=== PATIENT | male | born 1995 | race Caucasian/White ===

== ENCOUNTER 2016-09-28 15:08 | Emergency (ER) | payer SELFPAY ==
[2016-09-28 15:27] VITALS: BP 117/67
== END 2016-09-28 20:47 | disposition left against medical advice (07) ==
LOC: ED 15:08
DX: Z53.21 Procedure and treatment not carried out due to patient leaving prior to being seen by health care provider (principal)

== ENCOUNTER 2017-03-12 09:18 | Emergency (ER) | payer SELFPAY ==
--- NOTE | 2017-03-12 10:07 | Emergency Department Report ---
Chief Complaint: Shoulder Injury Stated Complaint: RIGHT ARM INJURY Time Seen by Provider: 03/12/17 09:45 - HPI History of Present Illness: Patient here complaining of right shoulder pain and she was playing basketball yesterday. He said another player stepped into his right shoulder. He states that he is unable to move his right shoulder due to pain. Patient heart rate is at 40 and he said he has a history of slow heart rate. He denies any chest pain or shortness of breath. He said his pain is 10 out of 10. Denies any nausea or vomiting. - ROS Review of Systems: All systems are negative unless stated in HPI above. - Exam Vital Signs: Vital Signs 03/12/17 09:36 Temperature 97.9 F Pulse Rate 40 L Respiratory 16 Rate Blood Pressure 115/45 O2 Sat by Pulse 99 Oximetry Physical Exam: Gen.: This is a 21-year-old male that appears to be in pain and he looks very pale. CV: She is bradycardic at 40. Extremity: Right shoulder tender to palpate with limited range of motion. Pulses are 2+ ulnar and radial bilaterally. No neurovascular compromise. No shoulder joint deformity or appearance of dislocation. MSE screening note: Focused history and physical exam performed. Due to findings the following was ordered: ED Disposition for MSE Condition: Stable Referrals: PRIMARY CARE, [Primary Care Provider] - 3-5 Days
--- NOTE | 2017-03-12 10:31 | XRay Report ---
RIGHT SHOULDER, 3 VIEWS: HISTORY: right shoulder pain. The humeral head is slightly low riding with respect to the glenoid of the scapula. This could represent poor positioning of the patient or a right shoulder joint effusion. There is no evidence for fracture, dislocation, ligamentous injury or bone lesion. The soft tissues are within normal limits. IMPRESSION: Possible right shoulder joint effusion. No acute bony injury detected.
[2017-03-12 10:52] LABS: Basophils % (Auto) 0.3 % (0.0-1.8); Eosinophils % (Auto) 1.8 % (0.0-4.3); Hematocrit 43.2 % (35.5-45.6); Hemoglobin 14.4 gm/dl (11.8-15.2); Mean Corpuscular HGB Conc 33 % (32-34); Mean Corpuscular Hemoglobin 30 pg (28-32); Mean Corpuscular Volume 88 fl (84-94); Platelet Count 141 K/mm3 (140-440); Red Blood Count 4.88 M/mm3 (3.65-5.03); Red Cell Distribution Width 14.7 % (13.2-15.2); White Blood Count 8.5 K/mm3 (4.5-11.0)
[2017-03-12 11:06] LABS: INR 0.95 (0.87-1.13)
[2017-03-12 11:07] LABS: Alanine Aminotransferase 16 units/L (7-56); Albumin 4.3 g/dL (3.9-5); Albumin/Globulin Ratio 1.6 %; Alkaline Phosphatase 62 units/L (35-129); Anion Gap 14 mmol/L; BUN/Creatinine Ratio 15; Blood Urea Nitrogen 15 mg/dL (9-20); Calcium 8.8 mg/dL (8.4-10.2); Carbon Dioxide 31 mmol/L (22-30); Chloride 103.5 mmol/L (98-107); Glucose 97 mg/dL (75-100); Partial Thromboplastin Time 30.9 Sec. (24.2-36.6); Potassium 3.9 mmol/L (3.6-5.0); Sodium 145 mmol/L (137-145)
[2017-03-12] MEDS ORDERED: TYLENOL PO ONE (11:39)
[2017-03-12] MEDS ORDERED: MOTRIN PO ONE (11:39)
--- NOTE | 2017-03-12 11:44 | Emergency Department Report ---
ED General Adult HPI - General Chief complaint: Shoulder Injury Stated complaint: RIGHT ARM INJURY Time Seen by Provider: 03/12/17 09:45 Source: patient Mode of arrival: Ambulatory Limitations: No Limitations - History of Present Illness Initial comments: This is a 21-year-old male, previously unknown to this provider, right-hand dominant, presents to the ER with right proximal shoulder pain after a collision /accident while playing basketball yesterday. No other injuries. The pain is dull and achy. It does not radiate anywhere. It increases with palpation and range of motion. It decreases with rest -: Sudden Location: right, upper extremity Radiation: non-radiation Quality: aching Consistency: intermittent Improves with: rest Worsens with: movement Associated Symptoms: denies other symptoms - Related Data Previous Rx's Medication Instructions Recorded Last Taken Type HYDROcodone/APAP 10-325 [[place] 1 each PO Q6HR PRN #20 tablet 02/28/14 Unknown Rx 10/325] Acetaminophen [Tylenol Arthritis] 650 mg PO Q6HR PRN #30 tablet.er 03/12/17 Unknown Rx Ibuprofen [Motrin] 600 mg PO Q8H PRN #30 tablet 03/12/17 Unknown Rx Allergies Allergy/AdvReac Type Severity Reaction Status Date / Time No Known Allergies Allergy Unverified 02/28/14 13:43 ED Review of Systems ROS: Stated complaint: RIGHT ARM INJURY Other details as noted in HPI Constitutional: denies: fever Respiratory: denies: cough Cardiovascular: denies: chest pain Gastrointestinal: denies: abdominal pain Musculoskeletal: arthralgia, myalgia Neurological: denies: weakness, paresthesias, vertigo ED Past Medical Hx - Past Medical History Previous Medical History?: No - Surgical History Past Surgical History?: No - Social History Smoking Status: Former Smoker Substance Use Type: Alcohol - Medications Home Medications: Home Medications Medication Instructions Recorded Confirmed Last Taken Type HYDROcodone/APAP 10-325 [[place] 1 each PO Q6HR PRN #20 tablet 02/28/14 Unknown Rx 10/325] Acetaminophen [Tylenol Arthritis] 650 mg PO Q6HR PRN #30 tablet.er 03/12/17 Unknown Rx Ibuprofen [Motrin] 600 mg PO Q8H PRN #30 tablet 03/12/17 Unknown Rx ED Physical Exam - General Limitations: No Limitations, Physical Limitation General appearance: alert, in no apparent distress - Head Head exam: Present: atraumatic, normocephalic - Eye Eye exam: Present: normal appearance, EOMI - ENT ENT exam: Present: normal exam, normal orophraynx, mucous membranes moist, normal external ear exam - Neck Neck exam: Present: normal inspection, full ROM. Absent: tenderness, meningismus - Respiratory Respiratory exam: Present: normal lung sounds bilaterally. Absent: respiratory distress, chest wall tenderness - Cardiovascular Cardiovascular Exam: Present: normal rhythm, bradycardia, normal heart sounds. Absent: systolic murmur, diastolic murmur, rubs, gallop - GI/Abdominal GI/Abdominal exam: Present: soft, normal bowel sounds. Absent: distended, tenderness, guarding, rebound, rigid, pulsatile mass - Rectal Rectal exam: Present: deferred - Extremities Exam Extremities exam: Present: normal inspection, tenderness (right shoulder has mild diffuse tenderness. Patient can actively abduction through 90. He is able to externally and internally rotate the right shoulder, full range of motion in the right wrist, right elbow. Patient is able to fully internally rotate the shoulder, and touch the bottom of his back with the dorsal aspect of his right hand, and he is able to externally rotate the shoulder, and touch the back of his neck with his right palm. There is no redness, pus or streaking, the compartments are soft.), normal capillary refill, other (sensation intact to the bilateral median, radial, ulnar distribution. Patient endorses sensation to light touch in the bilateral deltoid distribution, but indicates that the right deltoid "feels numb."). Absent: pedal edema, joint swelling, calf tenderness - Back Exam Back exam: Present: normal inspection, full ROM. Absent: tenderness, CVA tenderness (R), paraspinal tenderness, vertebral tenderness - Neurological Exam Neurological exam: Present: alert, oriented X3, normal gait, other (Extraocular movements intact. Tongue midline. No facial droop. Facial sensation intact to light touch in the V1, V2, V3 distribution bilaterally. 5 and 5 strength in 4 extremities.. Sensation is intact to light touch in 4 extremities.) - Psychiatric Psychiatric exam: Present: normal affect, normal mood - Skin Skin exam: Present: warm, dry, intact, normal color. Absent: rash ED Course Vital Signs 03/12/17 03/12/17 09:36 11:45 Temperature 97.9 F 98.1 F Pulse Rate 40 L 47 L Respiratory 16 16 Rate Blood Pressure 115/45 Blood Pressure 116/78 [Left] O2 Sat by Pulse 99 100 Oximetry ED Medical Decision Making - Lab Data Result diagrams: 03/12/17 10:29 03/12/17 10:29 Vital Signs 03/12/17 09:36 Temperature 97.9 F Pulse Rate 40 L Respiratory 16 Rate Blood Pressure 115/45 O2 Sat by Pulse 99 Oximetry Lab Results 03/12/17 03/12/17 03/12/17 Range/Units 10:21 10:29 10:29 WBC 8.5 (4.5-11.0) K/mm3 RBC 4.88 (3.65-5.03) M/mm3 Hgb 14.4 (11.8-15.2) gm/dl Hct 43.2 (35.5-45.6) % MCV 88 (84-94) fl MCH 30 (28-32) pg MCHC 33 (32-34) % RDW 14.7 (13.2-15.2) % Plt Count 141 (140-440) K/mm3 Lymph % (Auto) 22.7 (13.4-35.0) % Sierra % (Auto) 9.2 H (0.0-7.3) % Eos % (Auto) 1.8 (0.0-4.3) % Baso % (Auto) 0.3 (0.0-1.8) % Lymph # 1.9 (1.2-5.4) K/mm3 Sierra # 0.8 (0.0-0.8) K/mm3 Eos # 0.2 (0.0-0.4) K/mm3 Baso # 0.0 (0.0-0.1) K/mm3 Seg Neutrophils % 66.0 (40.0-70.0) % Seg Neutrophils # 5.6 (1.8-7.7) K/mm3 PT 13.2 (12.2-14.9) Sec. INR 0.95 (0.87-1.13) APTT 30.9 (24.2-36.6) Sec. Sodium (137-145) mmol/L Potassium (3.6-5.0) mmol/L Chloride (98-107) mmol/L Carbon Dioxide (22-30) mmol/L Anion Gap mmol/L BUN (9-20) mg/dL Creatinine (0.8-1.5) mg/dL Estimated GFR ml/min BUN/Creatinine Ratio % Glucose (75-100) mg/dL POC Glucose 95 (70-105) Calcium (8.4-10.2) mg/dL Total Bilirubin (0.1-1.2) mg/dL AST (5-40) units/L ALT (7-56) units/L Alkaline Phosphatase (35-129) units/L Total Protein (6.3-8.2) g/dL Albumin (3.9-5) g/dL Albumin/Globulin Ratio % Blood Type Antibody Screen 03/12/17 03/12/17 Range/Units 10:29 10:29 WBC (4.5-11.0) K/mm3 RBC (3.65-5.03) M/mm3 Hgb (11.8-15.2) gm/dl Hct (35.5-45.6) % MCV (84-94) fl MCH (28-32) pg MCHC (32-34) % RDW (13.2-15.2) % Plt Count (140-440) K/mm3 Lymph % (Auto) (13.4-35.0) % Sierra % (Auto) (0.0-7.3) % Eos % (Auto) (0.0-4.3) % Baso % (Auto) (0.0-1.8) % Lymph # (1.2-5.4) K/mm3 Sierra # (0.0-0.8) K/mm3 Eos # (0.0-0.4) K/mm3 Baso # (0.0-0.1) K/mm3 Seg Neutrophils % (40.0-70.0) % Seg Neutrophils # (1.8-7.7) K/mm3 PT (12.2-14.9) Sec. INR (0.87-1.13) APTT (24.2-36.6) Sec. Sodium 145 (137-145) mmol/L Potassium 3.9 (3.6-5.0) mmol/L Chloride 103.5 (98-107) mmol/L Carbon Dioxide 31 H (22-30) mmol/L Anion Gap 14 mmol/L BUN 15 (9-20) mg/dL Creatinine 1.0 (0.8-1.5) mg/dL Estimated GFR > 60 ml/min BUN/Creatinine Ratio 15 % Glucose 97 (75-100) mg/dL POC Glucose (70-105) Calcium 8.8 (8.4-10.2) mg/dL Total Bilirubin 0.60 (0.1-1.2) mg/dL AST 22 (5-40) units/L ALT 16 (7-56) units/L Alkaline Phosphatase 62 (35-129) units/L Total Protein 7.0 (6.3-8.2) g/dL Albumin 4.3 (3.9-5) g/dL Albumin/Globulin Ratio 1.6 % Blood Type O POSITIVE Antibody Screen Negative - EKG Data -: EKG Interpreted by Me - Radiology Data Radiology results: report reviewed, image reviewed X-ray of the shoulder demonstrates no fracture or dislocation, the humeral head is slightly low riding with respect to the glenoid, may represents an effusion. - Medical Decision Making Differential diagnosis, including but not limited to: Sprain, strain, tendon injury, labrum violation, musculoskeletal injury Assessment and plan: 21-year-old right-handed male who reports right shoulder pain after a collision while playing basketball yesterday. He is distally neurovascularly intact, and his physical exam does not suggest fracture or dislocation or infection. Most likely, he has a contusion, there may be soft tissue injury which is not readily apparent on his physical examination. His bradycardia is asymptomatic and patient is well-developed and plays basketball and sports, and appears to be a well conditioned athlete. Patient will be placed in the right shoulder sling, he is instructed as to the need to follow up with outpatient orthopedics for physical therapy and possible outpatient MRI. He can follow up with a primary care doctor or bending roll hand routinely for his age symptomatically bradycardia. Critical care attestation.: If time is entered above; I have spent that time in minutes in the direct care of this critically ill patient, excluding procedure time. ED Disposition Clinical Impression: Right shoulder pain Disposition: DC-01 TO HOME OR SELFCARE Is pt being admited?: No Does the pt Need Aspirin: No Condition: Stable Instructions: Shoulder Sprain (ED) Additional Instructions: Rest and avoid heavy lifting. Avoid strenuous physical activity. Keep the right shoulder sling in place. It is important to closely follow up with an outpatient orthopedist, within the next 5-7 days. Based on the history and physical, patient may have injury to the soft tissue rotator cuff, or glenoid labrum. This typically requires MRI to diagnose. It is also very important to follow-up in outpatient orthopedist to start physical therapy, which can improve strength, range of motion, functionality and use of the affected extremity over long-term period Of time. Please return to the ER right away with new pain, worsened pain, migration of pain, fevers, chills, weakness, numbness, and confusion, inability to tolerate liquid feeds. Prescriptions: Acetaminophen [Tylenol Arthritis] 650 mg PO Q6HR PRN #30 tablet.er PRN Reason: Pain Ibuprofen [Motrin] 600 mg PO Q8H PRN #30 tablet PRN Reason: Pain Referrals: PRIMARY CARE, [Primary Care Provider] - 3-5 Days ABRIL LUCIANO MD [Staff Physician] - 3-5 Days Forms: Work/School Release Form(ED)
[2017-03-12 11:45] VITALS: BP 116/78
== END 2017-03-12 11:57 | disposition home or self-care (01) ==
LOC: ED 09:18
DX: M25.511 Pain in right shoulder (principal); Z87.891 Personal history of nicotine dependence
CPT/HCPCS: 36415; 80053; 82962; 85025; 85610; 85730; 86850; 86900; 86901; 93005; 93010